=== PATIENT | male | born 1985 | race Caucasian/White ===

== ENCOUNTER 2023-11-01 07:38 | Observation (INO) | payer BC ==
[2023-10-31 09:35] VITALS: BMI 27.3
[2023-11-01] MEDS ORDERED: Fentanyl 250 MCG/5 ML VIAL ONE (10:25)
[2023-11-01] MEDS ORDERED: fentaNYL 50 mcg/mL 1 mL Vial ONE ×4 (10:25→15:03)
[2023-11-01] MEDS ORDERED: PROPOFOL 40 ML ONE ×2 (10:25→12:20)
[2023-11-01] MEDS ORDERED: Glycopyrrolate 0.2 MG/ML 5 ML SYRINGE ONE (11:05)
[2023-11-01] MEDS ORDERED: SUGAMMADEX SODIUM 200 MG/2 ML VIAL ONE (11:13)
[2023-11-01] MEDS ORDERED: ePHEDrine Sulfate 50 MG/10 ML VIAL ONE (11:13)
[2023-11-01] MEDS ORDERED: Midazolam HCl 2 mg/2 ml Vial ONE (11:41)
[2023-11-01] MEDS ORDERED: Ketorolac Tromethamine 30 MG (1 mL) VIAL ONE ×2 (11:44→14:09)
[2023-11-01] MEDS ORDERED: Vancomycin (BATCH) 1.5 GM/300 ML BAG ONE (11:45)
[2023-11-01] MEDS ORDERED: Ropivacaine 0.2% 550 ML 550 ML NERVE BLCK SCH (12:15)
[2023-11-01] MEDS ORDERED: traMADol HCl 50 MG TAB PO PRN (12:15)
[2023-11-01] MEDS ORDERED: HYDROcodone/Acetaminophen 10/325 mg Tablet PO PRN ×2 (12:15)
[2023-11-01] MEDS ORDERED: diphenhydrAMINE 50 MG CAP PO PRN (12:24)
[2023-11-01] MEDS ORDERED: Bisacodyl 10 MG SUPP PR PRN (12:24)
[2023-11-01] MEDS ORDERED: HYDROcodone/Acetaminophen 7.5/325 mg Tablet PO PRN (12:24)
[2023-11-01] MEDS ORDERED: Sodium Chloride 0.9% 0 ML ONE (12:24)
[2023-11-01] MEDS ORDERED: Acetaminophen 500 MG TAB PO PRN (12:24)
[2023-11-01] MEDS ORDERED: Methocarbamol 500 MG TAB PO PRN (12:24)
[2023-11-01] MEDS ORDERED: Milk Of Magnesia 30 ML UDCUP PO PRN (12:24)
[2023-11-01] MEDS ORDERED: CEFAZOLIN 2 GM VIAL ONE (12:24)
[2023-11-01] MEDS ORDERED: Clindamycin/D5W 900 mg/50 ml Premix Bag ONE (12:44)
[2023-11-01] MEDS ORDERED: Lidocaine 1% PF 5 ML VIAL ONE (12:50)
[2023-11-01] MEDS ORDERED: Albuterol 200 PUFF (6.7GM INHALER) INH PRN (12:50)
[2023-11-01] MEDS ORDERED: Ropivacaine 0.5% HCl/PF (150 MG/30 ML VIAL) ONE (12:50)
[2023-11-01] MEDS ORDERED: Dexamethasone 20 MG/5 ML VIAL ONE (12:50)
[2023-11-01] MEDS ORDERED: Ondansetron PF 4 MG/2 ML Vial ONE (14:09)
[2023-11-01 16:52] LABS: #Basophils 0.03 10x3/uL (0.0-0.2); %Basophils 0.3 % (0.0-1.0); %Eosinophils 0.8 % (0.0-10.0); %Lymphocytes 19.9 % (21.0-51.0); %Monocytes 5.9 % (0.0-10.0); %Neutrophils 72.8 % (42.0-75.0); Hematocrit 41.6 % (42.0-52.0); Mean Corpuscular HGB CONC 33.7 g/dL (32.0-36.0); Mean Corpuscular Hemoglobin 28.2 pg (27.0-31.0); Mean Corpuscular Volume 83.7 fL (78.0-98.0); Mean Platelet Volume 9.8 fL (7.4-10.4); Platelet Count 238 10x3/uL (130-400); RBC Distribution Width 13.5 % (11.5-14.5); Red Blood Cell (RBC) Count 4.97 mill/uL (4.70-6.10)
[2023-11-01] MEDS: Ketorolac Tromethamine 30 MG (1 mL) VIAL IVP SCH (18:26)
[2023-11-01] MEDS: Ondansetron PF 4 MG/2 ML Vial IVP PRN (19:12)
[2023-11-01] MEDS: Dextrose 5 %-0.45 % NaCl 1,000 ML IV SCH (20:53)
[2023-11-01] MEDS: Simvastatin 10 MG TAB PO SCH (21:04)
[2023-11-01] MEDS: Famotidine 20 MG TAB PO SCH (21:04)
[2023-11-01] MEDS: HYDROcodone/Acetaminophen 7.5/325 mg Tablet PO PRN (21:05)
[2023-11-01] MEDS: Vancomycin 1 GM in Premix 1 BAG IVPB SCH (21:05)
[2023-11-01] MEDS: Promethazine HCl 25 MG/ML VIAL IM PRN (21:16)
[2023-11-01] MEDS: Zolpidem Tartrate 5 MG TAB PO PRN (23:17)
[2023-11-01] MEDS: Clindamycin/D5W 600 MG in Premix 1 BAG IVPB SCH (23:18)
[2023-11-01] MEDS: Mometasone 200 MCG/Formoterol 5 MCG 120 PUFF INHALER INH SCH (23:43)
[2023-11-02] MEDS: traMADol HCl 50 MG TAB PO PRN (05:17)
[2023-11-02 08:29] VITALS: TEMP 98.1
[2023-11-02] MEDS: Lisinopril 5 MG TAB PO SCH (08:35)
[2023-11-02 08:36] VITALS: BP 143/80
[2023-11-02] MEDS: Ondansetron ODT 4 MG TAB PO SCH (10:41)
== END 2023-11-02 10:55 | disposition home or self-care (01) ==
LOC: SDC 07:38 → SURG A 12:24
PROVIDERS: ADMIT Orthopaedic Surgery; ATTEND Orthopaedic Surgery
PROC: 0MQN4ZZ Repair Right Knee Bursa and Ligament, Percutaneous Endoscopic Approach (ICD-10-PCS; principal; 2023-11-02)
PROC: 0MQN0ZZ Repair Right Knee Bursa and Ligament, Open Approach (ICD-10-PCS; 2023-11-02)
DX: S83.511A Sprain of anterior cruciate ligament of right knee, initial encounter (principal); S83.411A Sprain of medial collateral ligament of right knee, initial encounter; J45.909 Unspecified asthma, uncomplicated; K21.9 Gastro-esophageal reflux disease without esophagitis; K76.0 Fatty (change of) liver, not elsewhere classified; I10 Essential (primary) hypertension; E78.5 Hyperlipidemia, unspecified; Z88.0 Allergy status to penicillin; V00.321A Fall from snow-skis, initial encounter; Z79.899 Other long term (current) drug therapy
CPT/HCPCS: 36415; 85025; 93005; 93010; A4306; C1713; C1889; J1100; J1885; J2250; J2405; J2550; J2704; J2795; J3010; J3370; J3370-JW; J3490; Q0162